=== PATIENT | male | born 1970 | race African-American/Black ===

== ENCOUNTER 2021-10-01 20:19 | Emergency (ER) | payer MEDICAID, OTHER ==
[~2021-10-01] VITALS: Ht 180.3 cm; Wt 81.6 kg
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
--- NOTE | 2021-10-01 20:44 | NUR ---
[employer] ME[employer] AT PT'S BEDSIDE
--- NOTE | 2021-10-01 20:45 | NUR ---
LATEST BS 89mg/dl. DR MCADAMS MADE AWARE
[2021-10-01] MEDS ORDERED: IV NS 0.9% 1,000 ML BAG IV ONE (21:00)
--- NOTE | 2021-10-01 21:15 | NUR ---
IV CANNULA G20 INSERTED ON RIGHT FOREARM. BLOOD DRAWN AND SENT TO LAB
[2021-10-01 21:30] LABS: BASOPHILS # (AUTO) 0.1 K/uL (0.0-0.2); BASOPHILS % (AUTO) 0.5 % (0.0-2.0); EOSINOPHILS % (AUTO) 2.7 % (0.0-6.0); HEMATOCRIT 27 % (39-51); HEMOGLOBIN 8.6 g/dL (13.5-17.5); LYMPHOCYTES # (AUTO) 1.4 K/uL (0.8-4.8); LYMPHOCYTES % (AUTO) 11.1 % (20.0-44.0); MEAN CORPUSCULAR HGB CONC 32 g/dl (31.0-36.0); MEAN CORPUSCULAR VOLUME 83 fL (80-96); MONOCYTES # (AUTO) 1.1 K/uL (0.1-1.30); MONOCYTES % (AUTO) 9.1 % (2.0-12.0); NEUTROPHILS # (AUTO) 9.4 K/uL (1.8-8.9); NEUTROPHILS % (AUTO) 76.6 % (43.0-81.0); PLATELET COUNT (AUTO) 696 K/uL (150-450); RED BLOOD CELL COUNT(AUTO) 3.25 MIL/uL (4.5-6.0); WHITE BLOOD COUNT (AUTO) 12.3 K/uL (4.3-11.0)
[2021-10-01 21:38] LABS: CREATININE 1.6 mg/dL (0.6-1.3); POTASSIUM 4.5 mmol/L (3.5-5.1)
[2021-10-01 21:45] LABS: ALBUMIN 2.3 g/dL (3.4-5.0); BILIRUBIN,DIRECT 0.1 mg/dL (0.0-0.2); BILIRUBIN,TOTAL 0.2 mg/dL (0.2-1.0)
--- NOTE | 2021-10-01 22:57 | NUR ---
[facility] [phone]
--- NOTE | 2021-10-01 23:01 | NUR ---
[facility] ETA 1 HOUR.
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
--- NOTE | 2021-10-01 23:30 | NUR ---
IV CANNULA REMOVED
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
[2021-10-01 23:41] VITALS: BP 99/98
--- NOTE | 2021-10-01 23:45 | NUR ---
PT D/C TO [facility]
== END 2021-10-01 23:45 ==
LOC: ER 20:22 → EDBD 20:22 → ER 23:45
DX: R73.9 Hyperglycemia, unspecified (principal); Z71.1 Person with feared health complaint in whom no diagnosis is made; F41.9 Anxiety disorder, unspecified; D64.9 Anemia, unspecified; F19.10 Other psychoactive substance abuse, uncomplicated; Z88.0 Allergy status to penicillin
CPT/HCPCS: 36415; 71045; 80048; 80076; 82962; 85025; 93005; 96360; 99285; J7030